=== PATIENT | male | born 1950 ===

== ENCOUNTER 2022-08-02 05:35 | Inpatient (IN) | payer OTHER ==
[~2022-08-02 05:35] MED LIST: CHILDREN'S ASPI81 MG PO; METFORMIN HCL850 M1 PO; NORVASC5 MG PO; PEPCID AC20 MG PO; ZESTRIL40 M1 PO; [UNRECOGNIZED DRUG - OTHER] PO
[2022-08-03] MEDS ORDERED: DUI500 PO (08:23)
[2022-08-03] MEDS ORDERED: PERCOCET 5-3251 EACH PO (08:23)
== END 2022-08-03 12:05 | disposition home or self-care (01) | DRG 483 ==
LOC: CIR.AMB 05:35 → SURG 18:11
PROVIDERS: ADMIT Orthopaedic Surgery; ATTEND Orthopaedic Surgery
PROC: 0LS30ZZ Reposition Right Upper Arm Tendon, Open Approach (ICD-10-PCS; 2022-08-02)
PROC: 0PUF0JZ Supplement Right Humeral Shaft with Synthetic Substitute, Open Approach (ICD-10-PCS; 2022-08-02)
PROC: 0RRJ00Z Replacement of Right Shoulder Joint with Reverse Ball and Socket Synthetic Substitute, Open Approach (ICD-10-PCS; principal; 2022-08-02 14:00)
DX: M19.011 Primary osteoarthritis, right shoulder (principal); M75.101 Unspecified rotator cuff tear or rupture of right shoulder, not specified as traumatic; Z20.822 Contact with and (suspected) exposure to COVID-19